=== PATIENT | male | born 1935 | race Caucasian/White ===

== ENCOUNTER 2017-03-13 10:23 | Inpatient (IN) | payer OTHER, BC ==
[~2017-03-13] VITALS: Ht 172.7 cm; Wt 89.3 kg
[2017-03-13 11:30] LABS: HEMATOCRIT 40.8 % (38.0-50.0); HEMOGLOBIN 14.5 G/DL (12.5-16.6); MCHC 35.5 G/DL (30.0-36.0); MCV 92.7 FL (86-99); RBC DIS.WIDTH-CV 12.3 % (11.8-14.6); RBC DIS.WIDTH-SD 42.1 % (39-53)
[2017-03-13 11:34] LABS: INTER. NORMALIZED RATIO 1.9
[2017-03-13 11:37] LABS: PTT 29.9 SEC (25-37)
[2017-03-13 11:38] LABS: ALBUMIN 3.8 g/dL (3.2-4.8); CHLORIDE 105 mEq/L (99-109); POTASSIUM 3.9 mEq/L (3.7-5.4); SODIUM 136 mEq/L (136-147)
[2017-03-13 11:40] LABS: GLUCOSE 105 mg/dL (70-99); TOTAL PROTEIN 6.9 g/dL (6.4-8.3)
[2017-03-13 11:42] LABS: TOTAL BILIRUBIN 1.2 mg/dL (0.0-1.0)
[2017-03-13 11:44] LABS: ALKALINE PHOSPHATASE 74 IU/L (3-129); CREATININE 0.8 mg/dL (0.6-1.3); GFR ESTIMATE (CALCULATED) > 59 mL/min/ (58.99-99999)
[2017-03-13 11:45] LABS: UREA NITROGEN (BUN) 12 mg/dL (9-23)
[2017-03-13 11:46] LABS: AST (GOT) 35 IU/L (2-34); DIRECT BILIRUBIN 0.5 mg/dL (0.0-0.3)
[2017-03-13 11:47] LABS: ALT (GPT) 20 IU/L (3-49); LIPASE 19 U/L (1.0-51.0)
[2017-03-13 12:35] LABS: PLAT.SUFFICIENCY ADEQUATE; PLATELET COUNT 208 K/uL (156-360)
[2017-03-13 13:02] LABS: APPEARANCE SL.HAZY ((CLEAR)); BILIRUBIN NEGATIVE; BLOOD NEGATIVE; COLOR YELLOW ((YELLOW)); GLUCOSE (STRIP) NEGATIVE; KETONES 5; LEUKOCYTES NEGATIVE; NITRITE NEGATIVE; PROTEIN (STRIP) NEGATIVE; SPECIFIC GRAVITY 1.018 (1.000-1.030); UROBILINOGEN 0.2 MG/DL (0.2-1.0)
[2017-03-13 13:07] LABS: BACTERIA RARE /HPF; CALCIUM OXALATE CRYSTALS 2+ /HPF; EPITHELIAL CELLS RARE /HPF; HYALINE CASTS 0-5 /LPF; MUCUS TRACE /LPF; RED BLOOD CELLS 0-5 /HPF (0-5); WHITE BLOOD CELLS 0-5 /HPF (0-5)
[2017-03-13] MEDS ORDERED: ENALAPRIL MALEAT5 MG PO (17:14)
[2017-03-13] MEDS ORDERED: WARFARIN SODIUM4 MG PO ×2 (17:14)
[2017-03-13] MEDS ORDERED: METFORMIN HCL1000 MG PO (17:14)
[2017-03-13] MEDS ORDERED: ALLOPURINOL100 MG PO (17:15)
[2017-03-13] MEDS ORDERED: METOPROLOL SUCC25 MG PO (17:15)
[2017-03-13] MEDS ORDERED: ASPIR 8181 M1 PO (17:15)
[2017-03-13] MEDS ORDERED: CILOSTAZOL100 MG PO (17:15)
[2017-03-13] MEDS ORDERED: ATORVASTATIN CA20 MG PO (17:15)
[2017-03-13 17:28] LABS: HEMOGLOBIN A1c (GLYCOHEMOGLOB) 6.5 % HGB (Below 5.7)
[2017-03-13 20:04] VITALS: BP 189/97
[2017-03-13 22:30] VITALS: BP 169/83
[2017-03-14 00:22] VITALS: BP 157/82
[2017-03-14 06:59] LABS: HEMATOCRIT 40.4 % (38.0-50.0); HEMOGLOBIN 13.8 G/DL (12.5-16.6); MCH 32.3 PG (29.0-34.0); MCHC 34.2 G/DL (30.0-36.0); MCV 94.6 FL (86-99); PLATELET COUNT 192 K/uL (156-360); RBC DIS.WIDTH-CV 12.7 % (11.8-14.6); RBC DIS.WIDTH-SD 43.8 % (39-53); RED BLOOD COUNT 4.27 M/uL (4.00-5.50)
[2017-03-14 07:24] LABS: CHLORIDE 106 MEQ/L (99-109); CREATININE 0.7 MG/DL (0.6-1.3); GFR ESTIMATE (CALCULATED) > 59 mL/min/ (58.99-99999); GLUCOSE 108 mg/dL (70-99); HDL CHOLESTEROL 39 MG/DL (Desirable>=40); LDL CHOLESTEROL 50 mg/dL (Desirable<100); NON-HDL CHOLESTEROL 66 mg/dL (Desirable<160); POTASSIUM 3.8 MEQ/L (3.7-5.4); SODIUM 140 MEQ/L (136-147); TOTAL CHOLESTEROL 105 mg/dL (Desirable<200); TRIGLYCERIDES 78 MG/DL (Normal: <150); UREA NITROGEN (BUN) 9 mg/dL (9-23)
[2017-03-14 08:47] VITALS: BP 175/92
[2017-03-14 12:30] VITALS: BP 170/85
[2017-03-14 15:08] VITALS: BP 159/81
[2017-03-14 17:17] LABS: TROP-I INTERPRETATION NEGATIVE
[2017-03-14 19:55] VITALS: BP 140/95
[2017-03-14 21:25] LABS: TROP-I INTERPRETATION NEGATIVE; TROPONIN-I 0.22 ng/mL (0.0-0.30)
[2017-03-15 00:42] VITALS: BP 151/86
[2017-03-15 04:00] VITALS: BP 170/87
[2017-03-15 07:12] LABS: HEMATOCRIT 42.3 % (38.0-50.0); HEMOGLOBIN 14.7 G/DL (12.5-16.6); MCH 32.7 PG (29.0-34.0); MCHC 34.8 G/DL (30.0-36.0); MCV 94.2 FL (86-99); RBC DIS.WIDTH-CV 12.6 % (11.8-14.6); RBC DIS.WIDTH-SD 43.6 % (39-53); RED BLOOD COUNT 4.49 M/uL (4.00-5.50); WHITE BLOOD COUNT 10.7 K/uL (4.1-10.2)
[2017-03-15 07:14] LABS: INTER. NORMALIZED RATIO 1.5
[2017-03-15 07:29] LABS: CHLORIDE 101 MEQ/L (99-109); CREATININE 0.7 MG/DL (0.6-1.3); GFR ESTIMATE (CALCULATED) > 59 mL/min/ (58.99-99999); GLUCOSE 125 mg/dL (70-99); POTASSIUM 3.5 MEQ/L (3.7-5.4); SODIUM 137 MEQ/L (136-147); UREA NITROGEN (BUN) 9 mg/dL (9-23)
[2017-03-15 07:35] LABS: TROP-I INTERPRETATION INDETERMINATE; TROPONIN-I 0.39 ng/mL (0.0-0.30)
[2017-03-15 07:38] LABS: PLAT.SUFFICIENCY ADEQUATE; PLATELET COUNT 187 K/uL (156-360)
[2017-03-15 08:04] VITALS: BP 161/77
[2017-03-15 11:43] VITALS: BP 148/94
[2017-03-15 13:41] LABS: TROP-I INTERPRETATION INDETERMINATE; TROPONIN-I 0.43 ng/mL (0.0-0.30)
[2017-03-15 16:55] VITALS: BP 132/64
[2017-03-15 19:38] LABS: TROP-I INTERPRETATION INDETERMINATE; TROPONIN-I 0.45 ng/mL (0.0-0.30)
[2017-03-15 20:40] VITALS: BP 135/81
[2017-03-16] VITALS (8 sets, daily range): BP systolic 125–199; BP diastolic 67–93
[2017-03-16 00:54] LABS: TROP-I INTERPRETATION INDETERMINATE; TROPONIN-I 0.51 ng/mL (0.0-0.30)
[2017-03-16 07:22] LABS: INTER. NORMALIZED RATIO 1.7
[2017-03-16 07:27] LABS: TROP-I INTERPRETATION INDETERMINATE; TROPONIN-I 0.55 ng/mL (0.0-0.30)
[2017-03-16 07:35] LABS: CHLORIDE 101 MEQ/L (99-109); CREATININE 0.8 MG/DL (0.6-1.3); GFR ESTIMATE (CALCULATED) > 59 mL/min/ (58.99-99999); GLUCOSE 110 mg/dL (70-99); POTASSIUM 3.7 MEQ/L (3.7-5.4); SODIUM 138 MEQ/L (136-147); UREA NITROGEN (BUN) 13 mg/dL (9-23)
[2017-03-16 13:24] LABS: TROP-I INTERPRETATION INDETERMINATE; TROPONIN-I 0.56 ng/mL (0.0-0.30)
[2017-03-17 03:39] VITALS: BP 135/73
[2017-03-17 06:20] LABS: INTER. NORMALIZED RATIO 1.8
[2017-03-17 08:24] VITALS: BP 144/66
[2017-03-17 09:53] LABS: TROP-I INTERPRETATION INDETERMINATE; TROPONIN-I 0.57 ng/mL (0.0-0.30)
[2017-03-17 12:35] VITALS: BP 155/101
[2017-03-17] MEDS ORDERED: LORAZEPAM1 MG PO (14:48)
[2017-03-17] MEDS ORDERED: METOPROLOL TART75 MG PO (14:49)
[2017-03-17] MEDS ORDERED: LIPITOR40 MG PO (17:09)
[2017-03-17] MEDS ORDERED: TOPROL XL25 MG PO (17:13)
[2017-03-17] MEDS ORDERED: CILOSTAZOL100 MG PO (17:17)
[2017-03-17] MEDS ORDERED: OCEAN NASAL 0.645 ML BOTH NARES (17:19)
[2017-03-17] MEDS ORDERED: BENADRYL ALLERG25 MG PO (17:20)
[2017-03-17] MEDS ORDERED: APRESOLINE20 MG/ML IV (17:22)
[2017-03-17] MEDS ORDERED: LOPRESSOR50 MG PO (17:23)
[2017-03-17] MEDS ORDERED: CEPACOL SORE T1 EAC9 MM (17:24)
[2017-03-17] MEDS ORDERED: TYLENOL REGULA325 MG PO (17:25)
[2017-03-17] MEDS ORDERED: TORADOL 15 MG/ML IM (17:26)
[2017-03-17] MEDS ORDERED: NOVOLOG 10100 UNITS/ SC (17:27)
== END 2017-03-17 16:05 | DRG 65 ==
LOC: EME 10:23 → 5SOUTH 16:09 → EDOF 16:09 → ENRESERV 16:11 → 5SOUTH 19:08
PROVIDERS: Emergency Medicine; Internal Medicine; Internal Medicine Cardiovascular Disease; Physician Assistant Medical
DX: I63.9 Cerebral infarction, unspecified (principal); I24.8 Other forms of acute ischemic heart disease; I25.10 Atherosclerotic heart disease of native coronary artery without angina pectoris; I10 Essential (primary) hypertension; E78.5 Hyperlipidemia, unspecified; M25.522 Pain in left elbow; I49.3 Ventricular premature depolarization; K21.9 Gastro-esophageal reflux disease without esophagitis; I49.5 Sick sinus syndrome; I48.2 Chronic atrial fibrillation; J44.9 Chronic obstructive pulmonary disease, unspecified; E11.9 Type 2 diabetes mellitus without complications; F41.9 Anxiety disorder, unspecified; I49.9 Cardiac arrhythmia, unspecified; R29.712 NIHSS score 12; R41.0 Disorientation, unspecified; Z96.653 Presence of artificial knee joint, bilateral; Z95.0 Presence of cardiac pacemaker; Z98.61 Coronary angioplasty status; Z95.1 Presence of aortocoronary bypass graft; Z86.73 Personal history of transient ischemic attack (TIA), and cerebral infarction without residual deficits; Z79.01 Long term (current) use of anticoagulants; Z85.828 Personal history of other malignant neoplasm of skin; Z87.891 Personal history of nicotine dependence; I25.2 Old myocardial infarction; C44.90 Unspecified malignant neoplasm of skin, unspecified
CPT/HCPCS: 70450; 71045; 71046; 73080; 80048; 80053; 80061; 81003; 82248; 82948; 83036; 83605; 83690; 84484; 85027; 85610; 85730; 87086; 92610 GN; 93005; 93306; 93880; 93971; 99281; 99285; J0360; J1650; J1815; J1885; J2060; J7030; J7050; S0028

== ENCOUNTER 2017-03-17 12:42 | Inpatient (IN) | payer OTHER, BC ==
[~2017-03-17] VITALS: Ht 172.7 cm; Wt 81.0 kg
[~2017-03-17 12:42] MED LIST: ALLOPURINOL100 MG PO; ASPIR 8181 M1 PO; ATORVASTATIN CA20 MG PO; CILOSTAZOL100 MG PO; ENALAPRIL MALEAT5 MG PO; METFORMIN HCL1000 MG PO; METOPROLOL SUCC25 MG PO; WARFARIN SODIUM4 MG PO
[2017-03-17] MEDS ORDERED: LORAZEPAM1 MG PO (14:48)
[2017-03-17] MEDS ORDERED: METOPROLOL TART75 MG PO (14:49)
[2017-03-17 16:51] VITALS: BP 198/95
[2017-03-17] MEDS ORDERED: LIPITOR40 MG PO (17:09)
[2017-03-17] MEDS ORDERED: TOPROL XL25 MG PO (17:13)
[2017-03-17] MEDS ORDERED: CILOSTAZOL100 MG PO (17:17)
[2017-03-17] MEDS ORDERED: OCEAN NASAL 0.645 ML BOTH NARES (17:19)
[2017-03-17] MEDS ORDERED: BENADRYL ALLERG25 MG PO (17:20)
[2017-03-17] MEDS ORDERED: APRESOLINE20 MG/ML IV (17:22)
[2017-03-17] MEDS ORDERED: LOPRESSOR50 MG PO (17:23)
[2017-03-17] MEDS ORDERED: CEPACOL SORE T1 EAC9 MM (17:24)
[2017-03-17] MEDS ORDERED: TYLENOL REGULA325 MG PO (17:25)
[2017-03-17] MEDS ORDERED: TORADOL 15 MG/ML IM (17:26)
[2017-03-17] MEDS ORDERED: NOVOLOG 10100 UNITS/ SC (17:27)
[2017-03-17 22:05] VITALS: BP 140/80
[2017-03-18 00:10] VITALS: BP 132/84
[2017-03-18 06:13] VITALS: BP 120/60
[2017-03-18 06:15] LABS: HEMATOCRIT 40.1 % (38.0-50.0); HEMOGLOBIN 13.6 G/DL (12.5-16.6); MCH 31.7 PG (29.0-34.0); MCHC 33.9 G/DL (30.0-36.0); MCV 93.5 FL (86-99); RBC DIS.WIDTH-CV 12.7 % (11.8-14.6); RBC DIS.WIDTH-SD 43.4 % (39-53); RED BLOOD COUNT 4.29 M/uL (4.00-5.50); WHITE BLOOD COUNT 8.3 K/uL (4.1-10.2)
[2017-03-18 06:58] LABS: INTER. NORMALIZED RATIO 2.5
[2017-03-18 07:00] LABS: PLAT.SUFFICIENCY ADEQUATE; PLATELET COUNT 217 K/uL (156-360)
[2017-03-18 07:23] LABS: ALBUMIN 3.1 G/DL (3.2-4.8); ALKALINE PHOSPHATASE 61 IU/L (3-129); ALT (GPT) 30 IU/L (3-49); AST (GOT) 34 IU/L (2-34); CHLORIDE 101 MEQ/L (99-109); CREATININE 0.7 MG/DL (0.6-1.3); GFR ESTIMATE (CALCULATED) > 59 mL/min/ (58.99-99999); GLUCOSE 117 mg/dL (70-99); POTASSIUM 3.5 MEQ/L (3.7-5.4); SODIUM 138 MEQ/L (136-147); TOTAL BILIRUBIN 0.7 MG/DL (0.0-1.0); TOTAL PROTEIN 6.4 G/DL (6.4-8.3); UREA NITROGEN (BUN) 10 mg/dL (9-23)
[2017-03-18 15:07] VITALS: BP 150/70
[2017-03-19 05:18] LABS: INTER. NORMALIZED RATIO 3.3
[2017-03-19 05:38] VITALS: BP 157/94
[2017-03-19 15:29] VITALS: BP 138/82
[2017-03-20 04:54] VITALS: BP 130/80
[2017-03-20 15:23] VITALS: BP 146/62
[2017-03-21 06:00] VITALS: BP 140/89
[2017-03-21 15:00] VITALS: BP 145/90
[2017-03-22 06:25] VITALS: BP 127/77
[2017-03-22 06:25] LABS: INTER. NORMALIZED RATIO 3.2
[2017-03-22 15:52] VITALS: BP 150/80
[2017-03-23 04:59] LABS: INTER. NORMALIZED RATIO 3.3
[2017-03-23 05:30] VITALS: BP 144/78
[2017-03-23 17:03] VITALS: BP 124/82
[2017-03-24 06:01] LABS: HEMATOCRIT 42.8 % (38.0-50.0); HEMOGLOBIN 14.4 G/DL (12.5-16.6); MCV 94.3 FL (86-99)
[2017-03-24 06:02] VITALS: BP 120/78
[2017-03-25 06:07] VITALS: BP 136/81
[2017-03-25 07:11] LABS: INTER. NORMALIZED RATIO 2.8
[2017-03-25 15:16] VITALS: BP 158/80
[2017-03-26 05:18] VITALS: BP 158/88
[2017-03-26 06:04] LABS: INTER. NORMALIZED RATIO 2.7
[2017-03-26 16:34] VITALS: BP 138/82
[2017-03-27 06:33] VITALS: BP 160/73
[2017-03-27 07:42] LABS: INTER. NORMALIZED RATIO 2.4
[2017-03-28 06:02] VITALS: BP 128/72
[2017-03-28 06:51] LABS: BASOPHIL (%) 0.4 % (0-1); BASOPHIL COUNT 0.1 K/uL (0-0.1); EOSINOPHIL (%) 0.4 % (0-5); EOSINOPHIL COUNT 0.1 K/uL (0-0.3); HEMOGLOBIN 13.9 G/DL (12.5-16.6); LYMPHOCYTE (%) 15.7 % (15-42); LYMPHOCYTE COUNT 1.8 K/uL (1.0-2.8); MCHC 33.1 G/DL (30.0-36.0); MCV 93.5 FL (86-99); MONOCYTE (%) 7.2 % (3-12); MONOCYTE COUNT 0.8 K/uL (0-0.8); NEUTROPHIL (%) 75.3 % (45-76); NEUTROPHIL COUNT 8.5 K/uL (1.8-6.4); PLATELET COUNT 268 K/uL (156-360); RBC DIS.WIDTH-CV 12.4 % (11.8-14.6); RBC DIS.WIDTH-SD 42.9 % (39-53); RED BLOOD COUNT 4.49 M/uL (4.00-5.50); WHITE BLOOD COUNT 11.2 K/uL (4.1-10.2)
[2017-03-28 06:54] LABS: INTER. NORMALIZED RATIO 2.5
[2017-03-28 07:14] LABS: ALBUMIN 3.3 G/DL (3.2-4.8); ALKALINE PHOSPHATASE 78 IU/L (3-129); ALT (GPT) 24 IU/L (3-49); AST (GOT) 21 IU/L (2-34); CHLORIDE 101 MEQ/L (99-109); CREATININE 0.7 MG/DL (0.6-1.3); GFR ESTIMATE (CALCULATED) > 59 mL/min/ (58.99-99999); GLUCOSE 107 mg/dL (70-99); POTASSIUM 4.6 MEQ/L (3.7-5.4); SODIUM 138 MEQ/L (136-147); TOTAL BILIRUBIN 0.8 MG/DL (0.0-1.0); TOTAL PROTEIN 6.1 G/DL (6.4-8.3); UREA NITROGEN (BUN) 12 mg/dL (9-23)
[2017-03-28 15:36] VITALS: BP 120/80
[2017-03-29 04:56] VITALS: BP 124/66
[2017-03-29 06:48] LABS: INTER. NORMALIZED RATIO 2.6
[2017-03-29 15:04] VITALS: BP 130/60
[2017-03-30 05:47] VITALS: BP 133/66
[2017-03-30 05:47] LABS: INTER. NORMALIZED RATIO 2.4
[2017-03-30 15:38] VITALS: BP 120/75
[2017-03-31 05:31] VITALS: BP 145/80
[2017-03-31 06:39] LABS: INTER. NORMALIZED RATIO 2.2
[2017-03-31 15:47] VITALS: BP 130/86
[2017-04-01 05:33] VITALS: BP 126/54
[2017-04-01 11:57] LABS: INTER. NORMALIZED RATIO 2.2
[2017-04-01 15:51] VITALS: BP 138/87
[2017-04-02 05:42] VITALS: BP 145/85
[2017-04-02 05:53] LABS: INTER. NORMALIZED RATIO 2.2
[2017-04-02 15:24] VITALS: BP 132/72
[2017-04-03 05:43] VITALS: BP 142/78
[2017-04-03 06:37] LABS: INTER. NORMALIZED RATIO 2.4
[2017-04-03 15:38] VITALS: BP 130/70
[2017-04-04 04:50] LABS: INTER. NORMALIZED RATIO 2.3
[2017-04-04 06:40] VITALS: BP 130/60
[2017-04-04 15:59] VITALS: BP 119/55
[2017-04-05 05:23] LABS: INTER. NORMALIZED RATIO 2.3
[2017-04-05 07:03] VITALS: BP 122/84
[2017-04-05 15:51] VITALS: BP 130/72
[2017-04-06 05:00] LABS: INTER. NORMALIZED RATIO 2.1
[2017-04-06 07:12] VITALS: BP 138/73
[2017-04-06 16:12] VITALS: BP 137/69
[2017-04-07 07:23] LABS: INTER. NORMALIZED RATIO 2.1
[2017-04-07 15:34] VITALS: BP 138/82
[2017-04-08 06:17] VITALS: BP 132/60
[2017-04-08 07:01] LABS: INTER. NORMALIZED RATIO 2.1
[2017-04-08 15:43] VITALS: BP 112/82
[2017-04-09 04:48] LABS: HEMATOCRIT 39.9 % (38.0-50.0); HEMOGLOBIN 13.6 G/DL (12.5-16.6); MCH 32.7 PG (29.0-34.0); MCHC 34.1 G/DL (30.0-36.0); MCV 95.9 FL (86-99); RBC DIS.WIDTH-CV 13.3 % (11.8-14.6); RBC DIS.WIDTH-SD 47.5 % (39-53); RED BLOOD COUNT 4.16 M/uL (4.00-5.50); WHITE BLOOD COUNT 8.8 K/uL (4.1-10.2)
[2017-04-09 04:52] LABS: INTER. NORMALIZED RATIO 2.1
[2017-04-09 05:00] LABS: ALBUMIN 3.3 g/dL (3.2-4.8)
[2017-04-09 05:01] LABS: CHLORIDE 103 mEq/L (99-109); SODIUM 139 mEq/L (136-147)
[2017-04-09 05:03] LABS: GLUCOSE 100 mg/dL (70-99); TOTAL PROTEIN 6.1 g/dL (6.4-8.3)
[2017-04-09 05:05] LABS: TOTAL BILIRUBIN 0.6 mg/dL (0.0-1.0)
[2017-04-09 05:06] LABS: ALKALINE PHOSPHATASE 93 IU/L (3-129)
[2017-04-09 05:07] LABS: CREATININE 0.8 mg/dL (0.6-1.3); GFR ESTIMATE (CALCULATED) > 59 mL/min/ (58.99-99999)
[2017-04-09 05:08] LABS: AST (GOT) 41 IU/L (2-34); UREA NITROGEN (BUN) 13 mg/dL (9-23)
[2017-04-09 05:10] LABS: ALT (GPT) 48 IU/L (3-49)
[2017-04-09 05:11] VITALS: BP 122/64
[2017-04-09 05:17] LABS: PLAT.SUFFICIENCY ADEQUATE; PLATELET COUNT 177 K/uL (156-360)
[2017-04-10 05:07] LABS: INTER. NORMALIZED RATIO 2.4
[2017-04-10 06:47] VITALS: BP 128/60
[2017-04-10] MEDS ORDERED: OCEAN NASAL 0.645 ML BOTH NARES (12:33)
[2017-04-10] MEDS ORDERED: ALLOPURINOL100 MG PO (12:33)
[2017-04-10] MEDS ORDERED: NICOTINE PATCH1 EACH TD (12:33)
[2017-04-10] MEDS ORDERED: LIPITOR40 MG PO (12:33)
[2017-04-10] MEDS ORDERED: METOPROLOL TART75 MG PO (12:33)
[2017-04-10] MEDS ORDERED: METFORMIN HCL1000 MG PO (12:33)
[2017-04-10] MEDS ORDERED: SENNA PLUS TAB1 EACH PO (12:33)
[2017-04-10] MEDS ORDERED: DESYREL100 MG PO (12:33)
[2017-04-10] MEDS ORDERED: WARFARIN SODIUM4 MG PO (12:33)
[2017-04-10] MEDS ORDERED: ASPIR 8181 M1 PO (12:33)
[2017-04-10] MEDS ORDERED: ENALAPRIL MALEAT5 MG PO (12:33)
[2017-04-10 15:47] VITALS: BP 124/60
[2017-04-11 05:45] VITALS: BP 124/68
[2017-04-11 06:14] LABS: INTER. NORMALIZED RATIO 2.3
== END 2017-04-11 12:48 | disposition home health service (06) | DRG 56 ==
LOC: 3WEST 12:42 → ENPENDDIS 04-10 → 3WEST 04-11 12:48
PROVIDERS: Physical Medicine & Rehabilitation Pain Medicine; Psychiatry & Neurology Neurology
PROC: F07M0ZZ Range of Motion and Joint Mobility Treatment of Musculoskeletal System - Whole Body (ICD-10-PCS; principal; 2017-03-17)
DX: I69.354 Hemiplegia and hemiparesis following cerebral infarction affecting left non-dominant side (principal); I69.398 Other sequelae of cerebral infarction; G93.49 Other encephalopathy; I69.328 Other speech and language deficits following cerebral infarction; R26.2 Difficulty in walking, not elsewhere classified; I82.611 Acute embolism and thrombosis of superficial veins of right upper extremity; E83.51 Hypocalcemia; L03.113 Cellulitis of right upper limb; I48.2 Chronic atrial fibrillation; F41.9 Anxiety disorder, unspecified; R41.4 Neurologic neglect syndrome; Z91.81 History of falling; F43.21 Adjustment disorder with depressed mood; M10.9 Gout, unspecified; R53.1 Weakness; G47.00 Insomnia, unspecified; R45.1 Restlessness and agitation; R05 Cough; I10 Essential (primary) hypertension; E78.5 Hyperlipidemia, unspecified; E11.9 Type 2 diabetes mellitus without complications; I25.10 Atherosclerotic heart disease of native coronary artery without angina pectoris; M19.90 Unspecified osteoarthritis, unspecified site; I67.9 Cerebrovascular disease, unspecified; H91.90 Unspecified hearing loss, unspecified ear; D72.829 Elevated white blood cell count, unspecified; R74.8 Abnormal levels of other serum enzymes; I08.3 Combined rheumatic disorders of mitral, aortic and tricuspid valves; I27.20 Pulmonary hypertension, unspecified; R21 Rash and other nonspecific skin eruption; Z85.828 Personal history of other malignant neoplasm of skin; Z95.0 Presence of cardiac pacemaker; Z95.1 Presence of aortocoronary bypass graft; Z98.61 Coronary angioplasty status; Z96.653 Presence of artificial knee joint, bilateral; Z79.01 Long term (current) use of anticoagulants; Z79.84 Long term (current) use of oral hypoglycemic drugs
CPT/HCPCS: 70450; 71045; 80053; 82948; 85014; 85018; 85025; 85027; 85610; 92507 GN; 96125 GN; 97110 GO; 97127 GN; 97127 GO; 97530 GP; J1815

== ENCOUNTER 2017-04-18 14:45 | Observation (INO) | payer OTHER, BC ==
[~2017-04-18] VITALS: Ht 177.8 cm; Wt 77.9 kg
[~2017-04-18 14:45] MED LIST changes: +APRESOLINE20 MG/ML IV; +BENADRYL ALLERG25 MG PO; +CEPACOL SORE T1 EAC9 MM; +DESYREL100 MG PO; +LIPITOR40 MG PO; +LOPRESSOR50 MG PO; +LORAZEPAM1 MG PO; +METOPROLOL TART75 MG PO; +NICOTINE PATCH1 EACH TD; +NOVOLOG 10100 UNITS/ SC; +OCEAN NASAL 0.645 ML BOTH NARES; +SENNA PLUS TAB1 EACH PO; +TOPROL XL25 MG PO; +TORADOL 15 MG/ML IM; +TYLENOL REGULA325 MG PO
[2017-04-18 15:17] LABS: BASOPHIL (%) 0.5 % (0-1); EOSINOPHIL (%) 1.2 % (0-5); EOSINOPHIL COUNT 0.1 K/uL (0-0.3); HEMATOCRIT 40.9 % (38.0-50.0); HEMOGLOBIN 13.8 G/DL (12.5-16.6); IMMATURE GRANULOCYTE (%) 0.5 % (0.0-0.7); LYMPHOCYTE (%) 13.8 % (15-42); LYMPHOCYTE COUNT 1.2 K/uL (1.0-2.8); MCH 31.9 PG (29.0-34.0); MCHC 33.7 G/DL (30.0-36.0); MCV 94.5 FL (86-99); MONOCYTE (%) 7.4 % (3-12); MONOCYTE COUNT 0.7 K/uL (0-0.8); NEUTROPHIL (%) 76.6 % (45-76); NEUTROPHIL COUNT 6.8 K/uL (1.8-6.4); PLATELET COUNT 195 K/uL (156-360); RBC DIS.WIDTH-CV 13.4 % (11.8-14.6); RBC DIS.WIDTH-SD 46.7 % (39-53); RED BLOOD COUNT 4.33 M/uL (4.00-5.50); WHITE BLOOD COUNT 8.8 K/uL (4.1-10.2)
[2017-04-18 15:39] LABS: TROP-I INTERPRETATION NEGATIVE; TROPONIN-I 0.13 ng/mL (0.0-0.30)
[2017-04-18 15:43] LABS: ALBUMIN 3.3 G/DL (3.2-4.8); CHLORIDE 105 MEQ/L (99-109); POTASSIUM 3.8 MEQ/L (3.7-5.4); SODIUM 140 MEQ/L (136-147); TOTAL BILIRUBIN 0.6 MG/DL (0.0-1.0)
[2017-04-18 15:49] LABS: ALKALINE PHOSPHATASE 92 IU/L (3-129); ALT (GPT) 17 IU/L (3-49); AST (GOT) 17 IU/L (2-34); CREATININE 0.8 MG/DL (0.6-1.3); GFR ESTIMATE (CALCULATED) > 59 mL/min/ (58.99-99999); GLUCOSE 161 mg/dL (70-99); UREA NITROGEN (BUN) 12 mg/dL (9-23)
[2017-04-18 17:24] LABS: INTER. NORMALIZED RATIO 1.6
[2017-04-18] MEDS ORDERED: LIPITOR40 MG PO (17:33)
[2017-04-18] MEDS ORDERED: COUMADIN4 MG PO (17:33)
[2017-04-18] MEDS ORDERED: COUMADIN6 MG PO (17:33)
[2017-04-18] MEDS ORDERED: DESYREL100 MG PO (17:34)
[2017-04-18] MEDS ORDERED: ALLOPURINOL100 MG PO (17:34)
[2017-04-18] MEDS ORDERED: ADULT ASPIRIN R81 MG PO (17:34)
[2017-04-18 18:12] LABS: HDL CHOLESTEROL 40 MG/DL (Desirable>=40); LDL CHOLESTEROL 34 mg/dL (Desirable<100); NON-HDL CHOLESTEROL 48 mg/dL (Desirable<160); TOTAL CHOLESTEROL 88 mg/dL (Desirable<200); TRIGLYCERIDES 69 MG/DL (Normal: <150)
[2017-04-18 22:28] VITALS: BP 135/82
[2017-04-18 23:34] VITALS: BP 130/69
[2017-04-19] VITALS (8 sets, daily range): BP systolic 121–159; BP diastolic 68–82
[2017-04-19 06:30] LABS: HEMATOCRIT 39.3 % (38.0-50.0); HEMOGLOBIN 13.2 G/DL (12.5-16.6); MCHC 33.6 G/DL (30.0-36.0); MCV 95.2 FL (86-99); PLATELET COUNT 186 K/uL (156-360); RBC DIS.WIDTH-CV 13.6 % (11.8-14.6); RBC DIS.WIDTH-SD 47.9 % (39-53); RED BLOOD COUNT 4.13 M/uL (4.00-5.50); WHITE BLOOD COUNT 9.5 K/uL (4.1-10.2)
[2017-04-19 06:39] LABS: INTER. NORMALIZED RATIO 1.7
[2017-04-19 07:01] LABS: CHLORIDE 104 MEQ/L (99-109); CREATININE 0.8 MG/DL (0.6-1.3); GFR ESTIMATE (CALCULATED) > 59 mL/min/ (58.99-99999); POTASSIUM 3.7 MEQ/L (3.7-5.4); SODIUM 141 MEQ/L (136-147); UREA NITROGEN (BUN) 10 mg/dL (9-23)
[2017-04-19 07:02] LABS: GLUCOSE 112 mg/dL (70-99)
[2017-04-19] MEDS ORDERED: ANTIVERT25 MG PO (12:57)
[2017-04-20 05:00] VITALS: BP 138/78
[2017-04-20 06:49] LABS: INTER. NORMALIZED RATIO 1.8
[2017-04-20 07:16] VITALS: BP 125/75
[2017-04-20 09:04] LABS: HEMOGLOBIN A1c (GLYCOHEMOGLOB) 6.5 % (Below 5.7)
[2017-04-20 12:41] VITALS: BP 121/64
== END 2017-04-20 16:10 ==
LOC: EME 14:45 → 5WEST 17:15 → EDOF 17:15 → ENRESERV 17:16 → 5WEST 19:53
PROVIDERS: Emergency Medicine; Hospitalist
DX: G45.9 Transient cerebral ischemic attack, unspecified (principal); I69.393 Ataxia following cerebral infarction; I69.354 Hemiplegia and hemiparesis following cerebral infarction affecting left non-dominant side; I48.91 Unspecified atrial fibrillation; Z79.01 Long term (current) use of anticoagulants; I10 Essential (primary) hypertension; E78.5 Hyperlipidemia, unspecified; E11.9 Type 2 diabetes mellitus without complications; I25.10 Atherosclerotic heart disease of native coronary artery without angina pectoris; Z95.1 Presence of aortocoronary bypass graft; I25.2 Old myocardial infarction; I49.5 Sick sinus syndrome; Z95.0 Presence of cardiac pacemaker; Z98.890 Other specified postprocedural states; Z96.653 Presence of artificial knee joint, bilateral; Z85.828 Personal history of other malignant neoplasm of skin; Z79.82 Long term (current) use of aspirin; Z79.84 Long term (current) use of oral hypoglycemic drugs; Z66 Do not resuscitate
CPT/HCPCS: 70450; 80048; 80053; 80061; 81003; 82948; 83036; 84484; 85025; 85027; 85610; 93005; 99281; 99285; G0378; G8987 GO CJ; G8988 CI; G8989 CJ